=== PATIENT | female | born 1995 | race Hispanic/Latino ===

== ENCOUNTER 2016-10-10 21:01 | Emergency (ER) | payer OTHER ==
[~2016-10-10] VITALS: Ht 160 cm; Wt 63.5 kg
[~2016-10-10 21:01] MED LIST: BENTYL20 M1 PO; BLM PO; ESCITALOPRAM OX10 MG PO; FLAGYL500 MG PO; LEVSIN0.125 M1 PO; MINASTRIN 24 F1 EACH PO; MOTRIN 800MG T800 MG PO; NAPROSYN500 M1 PO; PERCOCET 325 MG1 TA2 PO; PRENATAL1 TA2 PO; PROAIR HFA8.5 GM INH; ZOFRAN ODT4 MG PO; ZOFRAN4 M1 PO
--- NOTE | 2016-10-10 21:16 | ED CARDIAC/CP/PALPITATIONS ---
History of Present Illness General Chief Complaint: Chest Pain Stated Complaint: PT IS HAVING CHEST PAINS ABOUT AN HOUR Source: patient, family Exam Limitations: no limitations Vital Signs & Intake/Output Vital Signs & Intake/Output Vital Signs Date Time Temp Pulse Resp B/P Pulse O2 O2 Flow FiO2 Ox Delivery Rate 10/11 0015 98.8 85 18 115/79 100 Room Air 10/10 2111 97.8 90 18 130/84 99 Room Air ED Intake and Output 10/11 0000 10/10 1200 Intake Total 0 Output Total Balance 0 Intake, Oral 0 Patient 140 lb Weight Allergies Coded Allergies: shellfish derived (Severe, THROAT TIGHTENS, ITCHY 06/14/16) nitrofurantoin (From MACROBID) (DIZZY, NAUSEA 03/21/16) Reconcile Medications Albuterol Sulfate (Proair Hfa) 90 MCG HFA.AER.AD 2 PUF INH Q4-6 PRN PRN shortness of breath Escitalopram Oxalate 10 MG TABLET 1 TAB PO DAILY ANXIETY (Reported) Ibuprofen 600 MG TABLET 1 TAB PO TID PRN pain with food Norethindrone-E.estradiol-Iron (Minastrin 24 Fe Chewable Tab) 1 EACH TAB.CHEW 1 TAB PO DAILY CONTROL (Reported) Triage Note: PT TO TRIAGE WITH C/O LEFT SIDED CHEST PAIN ON/OFF 04/03 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 EKG DONE IN TRIAGE, VSS. PT AMB TO ROOM4. Triage Nurses Notes Reviewed? yes Onset: Gradual Duration: hour(s): Timing: recent history Location: central Radiation: no radiation Activities at Onset: none Modifying Factors: Worsens With: palpation. Associated Symptoms: shortness of breath : No Patient currently breastfeeds: No HPI: 21-year-old woman, on control, nonsmoker, presents with parasternal chest wall pain associated with shortness of breath for the past one hour. The chest discomfort is nonradiating. She notes no fever chills wheezing phlegm runny nose or cough. She does not recall any trauma. She has no swelling of her lower extremities. She states that with exertion she becomes short of breath. She has no other concerns. She is otherwise well. Past History Travel History Traveled to [place] past 21 day No Medical History Any Pertinent Medical History? 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 No Review of Systems Review of Systems Constitutional: Reports: no symptoms. EENTM: Reports: no symptoms. Respiratory: Reports: no symptoms. Cardiovascular: Reports: no symptoms. GI: Reports: no symptoms. Genitourinary: Reports: no symptoms. Musculoskeletal: Reports: no symptoms. Skin: Reports: no symptoms. Neurological/Psychological: Reports: no symptoms. Hematologic/Endocrine: Reports: no symptoms. Immunologic/Allergic: Reports: no symptoms. All Other Systems: Reviewed and Negative Physical Exam Physical Exam General Appearance: well developed/nourished, mild distress Head: atraumatic, normal appearance Eyes: Bilateral: normal appearance. Ears, Nose, Throat: normal pharynx, normal ENT inspection Neck: normal inspection, supple, full range of motion Respiratory: normal breath sounds, no respiratory distress, quiet respiration, lungs clear, parasternal chest wall tenderness to palpation Cardiovascular: regular rate/rhythm Gastrointestinal: normal bowel sounds, soft, non-tender, no organomegaly Back: normal inspection, normal range of motion Extremities: normal inspection, normal capillary refill, normal range of motion, no edema Neurologic/Psych: no motor/sensory deficits, awake, alert, oriented x 3 Skin: intact, normal color, warm/dry Core Measures ACS in differential dx? No Severe Sepsis Present: No Septic Shock Present: No Progress Differential Diagnosis: costochondritis vs pe vs pneuomonia vs other. Plan of Care: Orders Procedure Date/time Status TROPONIN LEVEL 10/10 2120 Complete HUMAN BETA HCG SCREEN 10/10 2120 Complete D-DIMER 10/10 2120 Complete COMPREHENSIVE METABOLIC PANEL 10/10 2120 Complete CBC WITHOUT DIFFERENTIAL 10/10 2120 Complete EKG 10/10 2102 Active Laboratory Tests 10/10/162136: Anion Gap 13, Estimated GFR > 60, BUN/Creatinine Ratio 21.7, Glucose 89, Calcium 10.1, Total Bilirubin 0.3, AST 20, ALT 29, Alkaline Phosphatase 72, Troponin I < 0.01, Total Protein 7.9, Albumin 4.5, Globulin 3.4, Albumin/Globulin Ratio 1.3, Total Beta HCG NEGATIVE, D-Dimer 404 H, CBC w Diff NO MAN DIFF REQ, RBC 4.40, MCV 83.6, MCH 28.0, RDW 14.5, MPV 8.9, Gran % 58.8, Lymphocytes % 30.4, Monocytes % 8.7, Eosinophils % 1.7, Basophils % 0.4, Absolute Granulocytes 3.6, Absolute Lymphocytes 1.8, Absolute Monocytes 0.5, Absolute Eosinophils 0.1, Absolute Basophils 0, PUBS MCHC 33.5 Diagnostic Imaging: Viewed by Me: CT Scan. Discussed w/RAD: CT Scan. Radiology Impression: ct angio... no pe Initial ED EKG: normal axis, normal intervals, normal p-waves, normal QRS complex, normal sinus rhythm Comments: PATIENT: SAMANTHA NUNO PRESENT AGE: 21 PATIENT ACCOUNT NO: [id number] : 96 LOCATION: ER ORDERING PHYSICIAN: VASQUEZ VELAZQUEZ MD SERVICE DATE: 10/10/16 EXAM TYPE: CAT - CTA CHEST-PULMONARY EMBOLISM EXAMINATION: CT ANGIOGRAM OF THE CHEST WITH AND WITHOUT CONTRAST (CT PULMONARY ANGIOGRAM FOR PE) CLINICAL INFORMATION: Chest pain. Positive d-dimer. COMPARISON: CT of the chest 06/14/2016 TECHNIQUE: Prior to contrast administration, noncontrast localization images were obtained. Subsequently, multidetector volumetric imaging was performed from the thoracic inlet to below the diaphragms following the administration of 100 mL Optiray 350 intravenous contrast. No contrast reaction reported Sagittal, coronal, and MIP oblique sagittal reformatted images were obtained on the CT workstation, uploaded to PACS, and reviewed. Total exam dose-length product 299.1 mGy-cm FINDINGS: QUALITY OF STUDY/CONTRAST BOLUS: Satisfactory. PULMONARY ARTERIES: No central or segmental pulmonary emboli. THORACIC AORTA: No aneurysm or dissection. LUNG: No focal consolidation, nodules or masses. PLEURA: No pleural effusion or pneumothorax. MEDIASTINUM: Normal heart size. No pericardial effusion. No hilar or mediastinal lymphadenopathy. No evidence of septal bowing or right heart strain. CHEST WALL/AXILLA: No axillary or internal mammary lymphadenopathy. OSSEOUS STRUCTURES: No acute or suspicious osseous abnormality. UPPER ABDOMEN: Unremarkable. No reflux of contrast into the hepatic veins to suggest elevated right heart pressures. IMPRESSION: Normal CT of chest. No evidence of pulmonary embolism. VTE: negative DICTATED BY: LUCY GARCIA MD DATE/TIME DICTATED:10/10/162330 HEALTH CARE FACILITY ADMINISTRATOR:EBEN DATE/TIME TRANSCRIBED:10/10/162330 CONFIDENTIAL, DO NOT COPY WITHOUT APPROPRIATE AUTHORIZATION. <Electronically signed in Other Vendor System> SIGNED BY: LUCY GARCIA MD 10/10/16 160 Departure Departure Disposition: HOME OR SELF CARE Condition: Stable Clinical Impression Primary Impression: Chest wall pain Referrals: JAYME OSEGUERA PA-C (PCP/Family) Departure Forms: Customer Survey General Discharge Information Prescriptions: Current Visit Scripts Ibuprofen 1 TAB PO TID PRN pain #30 TAB with food Comments 10/10/16, 21:21... pt with wells score of zero, but perc score + (exogenous estrogens).... will order d-dimer and reassess. Pt with reproducible chest wall tenderness to palpation. 10/10/16, 0:21... CT ANGIO NEGATIVE....pt feels better... discussed with patient and family... likely costochondritis... pt safe for discharge. Critical Care Note Critical Care Note Critical Care Time: non-applicable
[2016-10-10 21:47] LABS: ABSOLUTE BASOPHIL COUNT 0 /CUMM (0.0-0.2); ABSOLUTE EOSINOPHIL COUNT 0.1 /CUMM (0.0-0.7); ABSOLUTE GRANULOCYTE CT 3.6 /CUMM (1.4-6.5); ABSOLUTE LYMPH COUNT 1.8 /CUMM (1.2-3.4); ABSOLUTE MONOCYTE COUNT 0.5 /CUMM (0.10-0.60); BASOPHIL % 0.4 % (0.0-2.0); EOSINOPHIL % 1.7 % (0-5); GRANULOCYTE % 58.8 % (42.2-75.2); HEMATOCRIT 36.8 % (37-47); MEAN CORPUSCULAR HGB CONC 33.5 G/DL (33.0-37.0); MEAN CORPUSCULAR VOLUME 83.6 FL (81.0-99.0); MEAN PLATELET VOLUME 8.9 FL (7.4-10.4); PLATELET COUNT 212 /CUMM (130-400); RBC DISTRIBUTION WIDTH 14.5 % (11.5-14.5); WHITE BLOOD CELL COUNT 6.1 /CUMM (4.8-10.8)
--- NOTE | 2016-10-10 23:42 | CT SCAN REPORT ---
EXAMINATION: CT ANGIOGRAM OF THE CHEST WITH AND WITHOUT CONTRAST (CT PULMONARY ANGIOGRAM FOR PE) CLINICAL INFORMATION: Chest pain. Positive d-dimer. COMPARISON: CT of the chest 06/14/2016 TECHNIQUE: Prior to contrast administration, noncontrast localization images were obtained. Subsequently, multidetector volumetric imaging was performed from the thoracic inlet to below the diaphragms following the administration of 100 mL Optiray 350 intravenous contrast. No contrast reaction reported Sagittal, coronal, and MIP oblique sagittal reformatted images were obtained on the CT workstation, uploaded to PACS, and reviewed. Total exam dose-length product 299.1 mGy-cm FINDINGS: QUALITY OF STUDY/CONTRAST BOLUS: Satisfactory. PULMONARY ARTERIES: No central or segmental pulmonary emboli. THORACIC AORTA: No aneurysm or dissection. LUNG: No focal consolidation, nodules or masses. PLEURA: No pleural effusion or pneumothorax. MEDIASTINUM: Normal heart size. No pericardial effusion. No hilar or mediastinal lymphadenopathy. No evidence of septal bowing or right heart strain. CHEST WALL/AXILLA: No axillary or internal mammary lymphadenopathy. OSSEOUS STRUCTURES: No acute or suspicious osseous abnormality. UPPER ABDOMEN: Unremarkable. No reflux of contrast into the hepatic veins to suggest elevated right heart pressures. IMPRESSION: Normal CT of chest. No evidence of pulmonary embolism. VTE: negative
[2016-10-10] MEDS ORDERED: IBUPROFEN600 M1 PO (23:53)
[2016-10-11 00:15] VITALS: BP 115/79
== END 2016-10-11 00:26 ==
LOC: ERH 21:01
PROVIDERS: Pediatrics
DX: R07.89 Other chest pain (principal)
CPT/HCPCS: 93005; 93010; 96374; J1200

== ENCOUNTER 2018-04-13 13:24 | Emergency (ER) | payer OTHER ==
[~2018-04-13] VITALS: Ht 160 cm; Wt 74.8 kg
[~2018-04-13 13:24] MED LIST changes: +ASPIRIN EC81 M1 PO; +IBUPROFEN600 M1 PO; +IBUPROFEN800 M1 PO; +IMITREX25 M1 PO; +TAYTULLA 1 MG-1 EACH PO; +VENLAFAXINE H37.5 M4 PO; +ZOFRAN ODT4 M1 SL
[2018-04-13 15:21] LABS: ABSOLUTE BASOPHIL COUNT 0 /CUMM (0.0-0.2); ABSOLUTE EOSINOPHIL COUNT 0.2 /CUMM (0.0-0.7); ABSOLUTE GRANULOCYTE CT 4.6 /CUMM (1.4-6.5); ABSOLUTE LYMPH COUNT 1.8 /CUMM (1.2-3.4); ABSOLUTE MONOCYTE COUNT 0.5 /CUMM (0.10-0.60); BASOPHIL % 0.4 % (0.0-2.0); EOSINOPHIL % 2.2 % (0-5); GRANULOCYTE % 64.6 % (42.2-75.2); HEMATOCRIT 37.3 % (37-47); MEAN CORPUSCULAR HGB CONC 33.3 G/DL (33.0-37.0); MEAN CORPUSCULAR VOLUME 80.9 FL (81.0-99.0); MEAN PLATELET VOLUME 8.9 FL (7.4-10.4); PLATELET COUNT 294 /CUMM (130-400); RBC DISTRIBUTION WIDTH 14.6 % (11.5-14.5); RED BLOOD CELL CT 4.62 /CUMM (4.20-5.40); WHITE BLOOD CELL COUNT 7.1 /CUMM (4.8-10.8)
--- NOTE | 2018-04-13 19:39 | ED CARDIAC/CP/PALPITATIONS ---
History of Present Illness General Chief Complaint: Chest Pain Stated Complaint: PT IS HAVING CHEST PAIN LT LEG IS NUMB Source: patient, old records, friend Exam Limitations: no limitations Vital Signs & Intake/Output Vital Signs & Intake/Output Vital Signs Date Time Temp Pulse Resp B/P B/P Pulse O2 O2 Flow FiO2 Mean Ox Delivery Rate 04/13 1945 Room Air 04/13 1945 98.7 88 16 119/79 100 Room Air 04/13 1349 98.4 92 20 134/85 99 Room Air Allergies Coded Allergies: shellfish derived (Severe, THROAT TIGHTENS, ITCHY 11/07/17) lactose (LACTOSE INTOLERANT 11/07/17) nitrofurantoin (From MACROBID) (DIZZY, NAUSEA 11/07/17) Reconcile Medications Aspirin (Ecotrin*) 81 MG TABLET.DR 1 TAB PO DAILY HEADACHE (Reported) Cyclobenzaprine HCl 10 MG TABLET 1 TAB PO TID PRN muscle strain / spasm Ibuprofen 800 MG TABLET 1 TAB PO TID PRN PAIN Ibuprofen 600 MG TABLET 1 TAB PO Q6P PRN pain with food Norethindrone-E.estradiol-Iron (T[place]tulla 1 MG-20 Mcg Capsule) 1 MG-20 MCG (24)/ 75 MG (4) CAPSULE 1 TAB PO DAILY CONTROL (Reported) Sumatriptan Succinate (Imitrex) 25 MG TABLET 1 TAB PO TID PRN MIGRAINE Venlafaxine HCl (Venlafaxine HCl ER) 37.5 MG CAP.ER.24H 1 CAP PO DAILY MENTAL HEALTH (Reported) Core Measure Meds Pre-Hospital aspirin Triage Note: C/O PERSISTANT LEFT SIDED CHEST PAIN RADIATING TO BACK, WORSE WITH INPIRATION. ALSO C/O LEFT LEG NUMBNESS. Triage Nurses Notes Reviewed? yes Onset: Morning Duration: hour(s):, constant, continues in ED Timing: recent history Quality/Severity: moderate, aching Location: central Radiation: no radiation Activities at Onset: rest Prior Chest Pain/Card Workup: echocardiography, stress test Nitro Today/Relief: no nitro taken today Aspirin Today: provided at home Associated Symptoms: back pain LMP (ages 10-50): unknown : No Patient currently breastfeeds: No HPI: The morning of admission the patient awoke with [id number] chest discomfort described as achy nonradiating constant worse with movement cough breathing. Chills reports discomfort in her left upper back left lower back with numbness to her left leg. She denies fever chills nausea vomiting diarrhea abdominal pain shortness of breath headache dysuria rash bleeding. Past History Travel History Traveled to [place] past 21 day No Medical History Any Pertinent Medical History? 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 No Review of Systems Review of Systems Constitutional: Reports: no symptoms. EENTM: Reports: no symptoms. Respiratory: Reports: no symptoms. Cardiovascular: Reports: see HPI, chest pain. GI: Reports: no symptoms. Genitourinary: Reports: no symptoms. Musculoskeletal: Reports: see HPI, back pain. Skin: Reports: no symptoms. Neurological/Psychological: Reports: see HPI, numbness. Hematologic/Endocrine: Reports: no symptoms. Immunologic/Allergic: Reports: no symptoms. All Other Systems: Reviewed and Negative Physical Exam Physical Exam General Appearance: well developed/nourished, alert, awake, anxious, comfortable Head: atraumatic, normal appearance Eyes: Bilateral: normal appearance, PERRL, EOMI. Ears, Nose, Throat: normal pharynx, normal ENT inspection, hearing grossly normal Neck: normal inspection, supple, full range of motion, no midline tenderness Respiratory: normal breath sounds, chest non-tender, no respiratory distress, quiet respiration, lungs clear Cardiovascular: regular rate/rhythm, normal peripheral pulses, norml femoral pulses equa Peripheral Pulses: 4+ carotid (R), 4+ carotid (L) Gastrointestinal: normal bowel sounds, soft, non-tender, no organomegaly Back: normal inspection, normal range of motion Extremities: normal inspection, normal capillary refill, normal range of motion, no edema, straight leg raised, no ligament instability Neurologic/Psych: no motor/sensory deficits, awake, alert, oriented x 3, normal gait Reflexes: 2+: bicep (R), bicep (L). Skin: intact, normal color, warm/dry Lymphatic: no anterior cervical jake Core Measures ACS in differential dx? Yes No ASA d/t Pharmacological CI (ASA GLOBE MOUNTER) CVA/TIA Diagnosis No Sepsis Present: No Sepsis Focused Exam Completed? No Progress Differential Diagnosis: atrial fibrillation, costochondritis, hyperkalemia, musculoskeletal pain Plan of Care: Orders Procedure Date/time Status TROPONIN LEVEL 04/13 1939 Active XRY-CHEST XRAY, TWO VIEWS 04/13 1935 Active URINE 04/13 144 Complete URINALYSIS 04/13 144 Complete TROPONIN LEVEL 04/13 144 Complete COMPREHENSIVE METABOLIC PANEL 04/13 1442 Complete CBC WITHOUT DIFFERENTIAL 04/13 1442 Complete EKG 04/13 1326 Active Laboratory Tests 04/13/18 1844: Urinalysis MANY H, Urine Color YEL, Urine Clarity CLDY H, Urine pH 7.0, Ur Specific [place] 1.020, Urine Protein NEG, Urine Ketones NEG, Urine Nitrite NEG, Urine Bilirubin NEG, Urine Urobilinogen 0.2, Ur Leukocyte Esterase NEG, Ur Microscopic SEDIMENT EXAMINED, Urine RBC RARE, Urine WBC 1-3 H, Ur Epithelial Cells MOD H, Urine Bacteria MOD H, Urine Mucus MOD H, Urine Hemoglobin NEG, Urine Glucose NEG, Urine Test NEGATIVE 04/13/18 1512: Anion Gap 10, Estimated GFR > 60, BUN/Creatinine Ratio 20.0, Glucose 74, Calcium 10.2, Total Bilirubin 0.2, AST 20, ALT 28, Alkaline Phosphatase 83, Troponin I < 0.01, Total Protein 8.1, Albumin 4.7, Globulin 3.4, Albumin/Globulin Ratio 1.4, CBC w Diff NO MAN DIFF REQ, RBC 4.62, MCV 80.9 L, MCH 27.0, MCHC 33.3, RDW 14.6 H, MPV 8.9, Gran % 64.6, Lymphocytes % 25.7, Monocytes % 7.1, Eosinophils % 2.2 , Basophils % 0.4, Absolute Granulocytes 4.6, Absolute Lymphocytes 1.8, Absolute Monocytes 0.5, Absolute Eosinophils 0.2, Absolute Basophils 0 Initial ED EKG: normal axis, normal intervals, normal p-waves, normal QRS complex, normal sinus rhythm, no ST T wave changes Prior EKG: unchanged Rhythm Strip: normal sinus rhythm Comments: Patient declined repeat troponin and check xray citing prolonged stay in ED. Made aware of risk and complication and she accepts and acknowledges. Departure Departure Time of Disposition: 1954 Disposition: HOME OR SELF CARE Condition: Stable Clinical Impression Primary Impression: Chest pain syndrome Secondary Impressions: Sciatica associated with disorder of lumbar spine Referrals: Meredith Hameed (PCP/Family) Luis Enrique Nguyen MD Departure Forms: Customer Survey General Discharge Information RELEASE- WORK Prescriptions: Current Visit Scripts Cyclobenzaprine HCl 1 TAB PO TID PRN muscle strain / spasm #30 TAB Ibuprofen 1 TAB PO Q6P PRN pain #50 TAB with food Critical Care Note Critical Care Note Critical Care Time: non-applicable
[2018-04-13 19:45] VITALS: BP 119/79
[2018-04-13] MEDS ORDERED: IBUPROFEN600 M1 PO (19:57)
[2018-04-13] MEDS ORDERED: CYCLOBENZAPRINE10 M1 PO (19:57)
== END 2018-04-13 20:10 ==
LOC: ERH 13:24
PROVIDERS: Physician Assistant Medical
DX: R07.89 Other chest pain (principal); M54.42 Lumbago with sciatica, left side; G43.909 Migraine, unspecified, not intractable, without status migrainosus; G47.00 Insomnia, unspecified; F41.9 Anxiety disorder, unspecified; F10.10 Alcohol abuse, uncomplicated
CPT/HCPCS: 81001; 81025; 93005; 93010